=== PATIENT | female | born 1985 | race American Indian/Alaskan Native ===

== ENCOUNTER 2023-06-19 11:11 | Emergency (ER) | payer BC ==
[2023-06-19 11:26] VITALS: BP 138/96; PULSE 88; RESP 18; TEMP 97.4; BMI 36.8
[2023-06-19] MEDS ORDERED: KETOROLAC TROMETHAMINE 30 MG/1 ML VIAL IM ONE (12:35)
[2023-06-19] MEDS ORDERED: ACETAMINOPHEN 500 MG TABLET (FP) PO ONE (12:35)
[2023-06-19] MEDS ORDERED: LIDOCAINE 4% PATCH TP ONE ×4 (12:35→17:26)
[2023-06-19] MEDS ORDERED: KETOROLAC TROMETHAMINE 30 MG/1 ML VIAL ONE (12:51)
[2023-06-19] MEDS ORDERED: ACETAMINOPHEN 500 MG TABLET (FP) ONE (12:51)
[2023-06-19 13:08] LABS: HCG,QUALITATIVE URINE Negative
[2023-06-19 13:27] LABS: BASO % 0.5 % (0-2.0); EOS % 1.1 % (0-4.5); HEMATOCRIT 42.8 % (32.4-45.2); HEMOGLOBIN 14.7 GM/dL (10.7-15.3); LYMPH % 13.6 % (8-40); MCHC 34.3 g/dl (32.0-36.0); MEAN CELL VOLUME 81.5 fl (80-96); MEAN PLT VOLUME 7.1 fl (7.5-11.1); MONO % 3.9 % (3.8-10.2); NEUT % 80.9 % (42.8-82.8); PLATELET COUNT 341 10^3/uL (134-434); RBC 5.25 M/mm3 (3.60-5.2); RDW 13.4 % (11.6-15.6); WHITE BLOOD COUNT 10.9 K/mm3 (4.0-10.0)
[2023-06-19 13:30] LABS: URINE APPEARANCE Clear; URINE BILIRUBIN Negative (NEGATIVE); URINE COLOR Yellow; URINE GLUCOSE (UA) Negative (NEGATIVE); URINE KETONE Negative (NEGATIVE); URINE LEUK ESTERASE Negative (NEGATIVE); URINE NITRITE Negative (NEGATIVE); URINE PROTEIN Negative (NEGATIVE); URINE UROBILINOGEN 0.2 mg/dL (0.2-1.0)
[2023-06-19 13:54] LABS: POTASSIUM 3.9 mmol/L (3.5-5.1)
[2023-06-19 13:56] LABS: ALBUMIN 3.8 g/dl (3.4-5.0); CALCIUM 8.9 mg/dL (8.5-10.1)
[2023-06-19 13:57] LABS: BLOOD UREA NITROGEN 14.3 mg/dL (7-18)
[2023-06-19 13:59] LABS: CREATININE 0.7 mg/dL (0.55-1.3)
[2023-06-19 14:01] LABS: BILIRUBIN,TOTAL 0.2 mg/dL (0.2-1); TOT PROT 7.7 g/dl (6.4-8.2)
[2023-06-19] MEDS ORDERED: LIDOCAINE PATCH REMOVAL MC SCH ×2 (22:00)
== END 2023-06-19 17:31 | disposition home or self-care (01) ==
LOC: JER 11:11
PROC: 3E0233Z Introduction of Anti-inflammatory into Muscle, Percutaneous Approach (ICD-10-PCS; principal; 2023-06-19)
DX: M54.9 Dorsalgia, unspecified (principal); R10.9 Unspecified abdominal pain
CPT/HCPCS: 36415; 74176-TC; 80053; 81003; 84703; 85025; 87086; 99284-25